=== PATIENT | male | born 1990 ===

== ENCOUNTER 2016-03-21 21:51 | Inpatient (IN) | payer MEDICAID ==
[~2016-03-21] VITALS: Ht 177.8 cm; Wt 55.8 kg
[2016-03-21 22:28] LABS: BASOPHILS 0.2 % (0.0-2.0); EOSINOPHILS 0 % (0-7); HEMOGLOBIN 14.6 g/dL (13.5-17.5); IMMATURE GRANULOCYTES 0.1 % (0-5); LYMPHOCYTES 11.6 % (15-50); MCH 30.2 pg (26.0-34.0); MCHC 33.2 g/dL (31.0-37.0); MCV 91.1 fL (80.0-100.0); MEAN PLATELET VOLUME 10.1 fL (7.4-10.4); MONOCYTES 22.6 % (2-11); NEUTROPHILS 65.5 % (40-80); PLATELET COUNT 128 10x3/uL (130-400); RBC 4.83 10x6/uL (4.20-6.10); RDW 12.4 % (11.5-14.5); WBC 10.1 10x3/uL (4.8-10.8)
[2016-03-21 23:23] LABS: ALBUMIN 4.1 g/dL (3.4-5.0); ALKALINE PHOSPHATASE 108 U/L (46-116); ALT (SGPT) 70 U/L (10-68); CALC OSMOLALITY 274 mosm/kg (275-300); CALCIUM 8.8 mg/dL (8.5-10.1); CARBON DIOXIDE 24.8 mmol/L (21.0-32.0); CHLORIDE - SERUM 98 mmol/L (98-107); CREATININE - SERUM 1.2 mg/dL (0.6-1.3); GLUCOSE 144 mg/dL (74-106); POTASSIUM - SERUM 3.1 mmol/L (3.5-5.1); PROTEIN - SERUM 8.4 g/dL (6.4-8.2); SODIUM 136 mmol/L (136-145); UREA NITROGEN 13 mg/dL (7-18); eGFR NON AFRICAN AMERICAN 78 mL/min (90-120)
[2016-03-21 23:31] LABS: AMYLASE - SERUM 22 U/L (25-115); LIPASE 77 U/L (73-393)
[2016-03-21 23:35] LABS: ACETAMINOPHEN 208.8 ug/mL (10.0-30.0)
[2016-03-22] VITALS (25 sets, daily range): BP systolic 110–131; BP diastolic 68–87; Ht 177.8 cm; Wt 55.8 kg
[2016-03-22 00:45] LABS: INR 1.27 (0.85-1.17); PROTIME 15.8 SECONDS (11.6-15.0)
--- NOTE | 2016-03-22 01:57 | NUR ---
PT RECIEVED. BP 121/78 HR 92 O2 SAT 98% PT STATES CURRENTLY HAVING SUICIDAL THOUGHTS, BUT HAS NO MEANS TO DO SO. PT SATES, "THE ONLY REASON EMS WAS CALLED WAS BECAUSE I DIDNT WANT A PAINFUL AND I WAS GETTING SICK AT HOME." PT STATES CURRENTLY ANXIETY LEVEL HIGH, PT SOMNOLENT. N/V EMESIS CLEAR. DOOR AND CURTAINS OPEN, LIGHT ON, BED IN LOWEST POSITION, CALL LIGHT IN REACH, PAPER SCRUBS ON. PT CLOSE TO NURSES STATION. WILL CONTINUE TO MONITOR.
--- NOTE | 2016-03-22 07:45 | NUR ---
ZOFRAN 4MG IVP FOR NAUSEA WITH EMESIS PER MAR ORDER
--- NOTE | 2016-03-22 08:04 | NUR ---
* Is the patient Alert and Oriented? Yes 0 * How many steps to enter\exit or inside your home? 8 0 * PCP DENIES HAVING A PCP 0 * Pharmacy [facility] 0 * Preadmission Environment Home with Family 0 * ADLs Independent 0 * Equipment None 0 * List name and contact numbers for known caregivers / representatives who currently or will assist patient after discharge: MOTHER: SHON PERALES [phone] 0 * Community resources currently utilized None 0 * Additional services required to return to the preadmission environment? Yes 0 * Can the patient safely return to the preadmission environment? No 0 * Has this patient been hospitalized within the prior 30 days at any hospital? No PATIENT IS ADMITTED FOR TYLENOL OVERDOSE. PATIENT IS AWAKE AND ALERT. HE STATES HE WAS INDEPENDENT IN ADL'S PRIOR TO ADMIT. PATIENT STATES HE LIVES WITH HIS MOTHER, SHON PERALES. PATIENT DENEIS HAVING A PCP. HE STATES THAT IF HE NEEDS MEDS HE GETS THEM FROM [facility] ON [facility]. PATIENT DENIES USE OF ANY EQUIPMENT AND DENIES EVER HAVING HOME HEALTH. THERE ARE 8 STEPS TO ENTER HIS HOME. PATIENT STATES HE HAS BEEN INPATIENT PSYCH AT [facility] AND HAS GONE TO [facility] IN THE PAST. HE STATES 12 YRS AGO HE WAS IN [facility] FOR DEPRESSION. AT DISCHARGE PATIENT WILL NEED INPATIENT PLACEMENT. HE IS AGREEABLE FOR INPATIENT PSYCH. HE DOES STATE THAT HE IS STILL WANTING TO . WHEN MEDICALLY STABLE CM WILL FIND PLACEMENT. CM TO FOLLOW.
--- NOTE | 2016-03-22 08:25 | NUR ---
DR ARTHUR HERE FOR EVAL, NO NEW ORDERS AT THIS TIME
--- NOTE | 2016-03-22 08:31 | NUR ---
OOB TO BEDSIDE COMMODE
--- NOTE | 2016-03-22 11:00 | NUR ---
SLEEPING WITH NO SIGNS OF DISTRESS, NO NAUSEA AT THIS TIME, ASSESSMENT COMPLETE, STATES HE STILLWANTS TO END IT ALL, VOICES NO NEEDS AT THIS TIME
[2016-03-22 14:08] LABS: UDS - AMPHET NEGATIVE QUAL (NEGATIVE); UDS - BARB NEGATIVE QUAL (NEGATIVE); UDS - BENZO NEGATIVE QUAL (NEGATIVE); UDS - COCAINE NEGATIVE QUAL (NEGATIVE); UDS - METH NEGATIVE QUAL (NEGATIVE); UDS - OPIATE NEGATIVE QUAL (NEGATIVE); UDS - PCP NEGATIVE QUAL (NEGATIVE); UDS - THC NEGATIVE QUAL (NEGATIVE)
--- NOTE | 2016-03-22 14:09 | NUR ---
DR SMITH AT BEDSIDE FOR EVAL, NEW ORDERS GIVEN, UA AND DRUG SCREEN EVAL TAKEN TO LAB
--- NOTE | 2016-03-22 14:27 | NUR ---
CHRONOMETER REPAIRER HERE FOR PT DRAW
[2016-03-22 14:35] LABS: APPEARANCE TURBID (CLEAR); COLOR YELLOW (YELLOW); LEUKOCYTE ESTERASE 2+ (NEGATIVE); NITRITE NEGATIVE (NEGATIVE); SPECIFIC GRAVITY 1.015 (1.005-1.020)
[2016-03-22 14:36] LABS: PROTEIN NEGATIVE (NEGATIVE)
[2016-03-22 14:37] LABS: GLUCOSE NEGATIVE (NEGATIVE)
[2016-03-22 14:38] LABS: BACTERIA MANY /hpf (NONE SEEN); BILIRUBIN NEGATIVE (NEGATIVE); EPITHELIAL CELLS 0-5 /hpf (0-5); KETONE MODERATE mg/dL (NEGATIVE); MUCUS <1+ /lpf (NONE SEEN); RED CELLS - URINE 0-5 /hpf (0-5)
[2016-03-22 14:39] LABS: CHOLESTEROL CRYSTALS RARE /hpf (NONE SEEN)
[2016-03-22 14:47] LABS: INR 1.18 (0.85-1.17); PROTIME 14.8 SECONDS (11.6-15.0)
--- NOTE | 2016-03-22 15:00 | NUR ---
RESTING WITH NO SIGNS OF DISTRESS, VSS, DENIES PAIN AND NAUSEA, CALL LIGHT IN REACH VOICES NO NEEDS AT THIS TIME
--- NOTE | 2016-03-22 17:19 | NUR ---
POTASSIUM 10 MEQ IV, INITIATED PER ORDER
--- NOTE | 2016-03-22 18:00 | NUR ---
MOTHER AT BEDSIDE, STATUS UPDATED, VOICES NO NEEDS AT THIS TIME
[2016-03-22 18:10] LABS: ALBUMIN 3.2 g/dL (3.4-5.0); ALKALINE PHOSPHATASE 75 U/L (46-116); ALT (SGPT) 70 U/L (10-68); BILIRUBIN - TOTAL 0.97 mg/dL (0.2-1.3); CALCIUM 8.4 mg/dL (8.5-10.1); CARBON DIOXIDE 21.8 mmol/L (21.0-32.0); CHLORIDE - SERUM 103 mmol/L (98-107); GLUCOSE 136 mg/dL (74-106); PROTEIN - SERUM 7.1 g/dL (6.4-8.2); SODIUM 138 mmol/L (136-145)
[2016-03-22 18:16] LABS: CALC OSMOLALITY 275 mosm/kg (275-300); CREATININE - SERUM 0.6 mg/dL (0.6-1.3); UREA NITROGEN 8 mg/dL (7-18); eGFR NON AFRICAN AMERICAN > 90 mL/min (90-120)
--- NOTE | 2016-03-22 18:45 | NUR ---
SECOND DOSE KCL 10 MEQ HELD, REPEAT CHEM PANEL POTASSIUM 4.0
--- NOTE | 2016-03-22 21:00 | NUR ---
2100: Pt resting flat in bed with eyes open. Pt LOCx3 alert and oriented. Pt denies pain, tingling, numbness, or nausea. Pt is able to move x4 extrem vs gravity without difficulty. Pt breathing RA [id number] with SPo2 98%. Lungs clear bilat with auscultation. MMP and no cyanosis noted. S1S2 regular SR on CM. PPPx4=bilat. ABD soft NT BS x4 active. Pt denies difficulty with elimination. 2109: Discussed with patient current plan of treatment including lab, possible transfers and locations, and services expected to recieve. Pt states he has been to [facility] before and verbalized understanding or plan. Discussed with patient current feelings. Pt states he is depressed. He expressed that he has no event specific to this event, but states he has a generalized feeling of depression. We discussed therapy and some previous experiences pt has had with therapy. Reassured patient and encouraged pt. Pt is polite and answers questions throughout discussion, but does not make eye contact and answers sometimes are brief.
[2016-03-22 22:08] LABS: INR 1.2 (0.85-1.17); PROTIME 15.1 SECONDS (11.6-15.0)
--- NOTE | 2016-03-22 22:30 | NUR ---
2230: Pt resting with eyes closed at this time. Pt able to get up OOB and use urinal without difficulty. Pts gait is steady. Emptied 500cc of clear yellow UOP.
[2016-03-23] VITALS (22 sets, daily range): BP systolic 104–119; BP diastolic 45–964
--- NOTE | 2016-03-23 | NUR ---
0000: Pt resting with eyes closed at this time. Easily arousable to verbal. Pt w/o c/o at this time.
--- NOTE | 2016-03-23 03:25 | NUR ---
0325: Reviewed lab with Poison control. Pt remains resting with eyes closed. Easily arousable to verbal. No c/o at this time. Pt remains SR 80-90 bpm. Remains room air with SPo2 98%.
--- NOTE | 2016-03-23 03:38 | NUR ---
0338: Pt requested "something" for sleep. Benadryl IV admin at this time.
--- NOTE | 2016-03-23 05:30 | NUR ---
0530: Pt resting with eyes closed. Open to verbal. Pt w/o c/o at this time.
[2016-03-23 05:52] LABS: BASOPHILS 0.2 % (0.0-2.0); EOSINOPHILS 0.3 % (0-7); HEMATOCRIT 39.2 % (42.0-54.0); IMMATURE GRANULOCYTES 0.2 % (0-5); LYMPHOCYTES 13.8 % (15-50); MCH 29.5 pg (26.0-34.0); MCHC 33.2 g/dL (31.0-37.0); MEAN PLATELET VOLUME 10.2 fL (7.4-10.4); MONOCYTES 16.2 % (2-11); NEUTROPHILS 69.3 % (40-80); PLATELET COUNT 113 10x3/uL (130-400); RBC 4.41 10x6/uL (4.20-6.10)
[2016-03-23 05:59] LABS: MCV 88.9 fL (80.0-100.0); WBC 6.2 10x3/uL (4.8-10.8)
[2016-03-23 06:06] LABS: INR 1.2 (0.85-1.17); PROTIME 15.1 SECONDS (11.6-15.0)
[2016-03-23 06:12] LABS: ALBUMIN 3.2 g/dL (3.4-5.0); ALKALINE PHOSPHATASE 75 U/L (46-116); ALT (SGPT) 72 U/L (10-68); BILIRUBIN - INDIRECT 0.37 mg/dL (0.00-1.00); BILIRUBIN - TOTAL 0.57 mg/dL (0.2-1.3); CALCIUM 8.2 mg/dL (8.5-10.1); CARBON DIOXIDE 26.3 mmol/L (21.0-32.0); CHLORIDE - SERUM 105 mmol/L (98-107); GLUCOSE 92 mg/dL (74-106); POTASSIUM - SERUM 3.4 mmol/L (3.5-5.1); SODIUM 139 mmol/L (136-145)
[2016-03-23 06:14] LABS: CALC OSMOLALITY 274 mosm/kg (275-300); CREATININE - SERUM 0.8 mg/dL (0.6-1.3); UREA NITROGEN 4 mg/dL (7-18); eGFR NON AFRICAN AMERICAN > 90 mL/min (90-120)
--- NOTE | 2016-03-23 09:56 | NUR ---
URINE SAMPLE OBTAINED AND DELIVERED TO LAB
[2016-03-23 10:04] LABS: APPEARANCE CLEAR (CLEAR); BACTERIA FEW /hpf (NONE SEEN); BILIRUBIN NEGATIVE (NEGATIVE); COLOR YELLOW (YELLOW); EPITHELIAL CELLS 0-5 /hpf (0-5); GLUCOSE NEGATIVE (NEGATIVE); KETONE SMALL mg/dL (NEGATIVE); LEUKOCYTE ESTERASE NEGATIVE (NEGATIVE); MUCUS <1+ /lpf (NONE SEEN); NITRITE NEGATIVE (NEGATIVE); PROTEIN NEGATIVE (NEGATIVE); WHITE CELLS - URINE 0-5 /hpf (0-5)
--- NOTE | 2016-03-23 19:00 | NUR ---
1900: Pt resting HOB 30 degrees with eyes closed. Open to verbal stimuli with no c/o at this time. Pt remains ST 120's on CM. Breathing RA [id number] with SPO2 98%. ABD soft NT BSx4. Pt denies difficulty with elimination.
[2016-03-24] VITALS (24 sets, daily range): BP systolic 85–121; BP diastolic 52–75
--- NOTE | 2016-03-24 | NUR ---
0000: Pt HR increased with activity. Pt HR increased to 160bpm sinus while up urinating. Pt without c/o SOB, Pain, Nausea at this time. Pt states he does not feel an increased HR. HR decreased back to 120's with decreased activity.
--- NOTE | 2016-03-24 04:00 | NUR ---
0400: Pt awake and alert at this time. Pt w/o c/o at this time. Pt temp 101.2 f. Pt states he does not feel hot. Pt is covered with blankets. Pt remains ST 120's on CM and increased with activity.
[2016-03-24 04:47] LABS: BASOPHILS 0.4 % (0.0-2.0); EOSINOPHILS 0.1 % (0-7); HEMATOCRIT 39.3 % (42.0-54.0); HEMOGLOBIN 13.2 g/dL (13.5-17.5); IMMATURE GRANULOCYTES 0.1 % (0-5); LYMPHOCYTES 20.9 % (15-50); MCH 29.9 pg (26.0-34.0); MCHC 33.6 g/dL (31.0-37.0); MCV 88.9 fL (80.0-100.0); MONOCYTES 22.4 % (2-11); NEUTROPHILS 56.1 % (40-80); PLATELET COUNT 122 10x3/uL (130-400); RBC 4.42 10x6/uL (4.20-6.10); WBC 6.7 10x3/uL (4.8-10.8)
[2016-03-24 05:12] LABS: ALBUMIN 3.3 g/dL (3.4-5.0); ALKALINE PHOSPHATASE 76 U/L (46-116); ALT (SGPT) 54 U/L (10-68); BILIRUBIN - DIRECT 0.13 mg/dL (0.00-0.30); BILIRUBIN - INDIRECT 0.37 mg/dL (0.00-1.00); CALC OSMOLALITY 272 mosm/kg (275-300); CALCIUM 8.2 mg/dL (8.5-10.1); CARBON DIOXIDE 24.8 mmol/L (21.0-32.0); CHLORIDE - SERUM 102 mmol/L (98-107); GLUCOSE 124 mg/dL (74-106); PROTEIN - SERUM 7.6 g/dL (6.4-8.2); SODIUM 138 mmol/L (136-145); UREA NITROGEN 2 mg/dL (7-18); eGFR NON AFRICAN AMERICAN > 90 mL/min (90-120)
--- NOTE | 2016-03-24 16:12 | NUR ---
TC to [facility] . Spoke with Janette. No available beds. TC to [facility]. Spoke with Pollo. Referred to school transportation director screener at [phone]. No available beds. TC to [facility]. Referred to intake nurse, Marta. Spoke with Marta. Clinical review preliminary given. She spoke with her Nurse Practitioner. [facility] does not have the capability to accept the patient at this time. Voiced concern regarding elevated temp and elevated pulse rate. CM advised primary nurse, Cristian and charge nurse, Andrea.
--- NOTE | 2016-03-24 19:20 | NUR ---
ASSESSMENT COMPLETE. S1S2. SINUS TACHYCARDIA SHOWING ON MONITOR. PT DENIES WANTING TO HURT SELF AT THIS PRESENT TIME. AAO. FOLLOWS COMMANDS. PERRLA. WEARING GLASSES. ROLL INSPECTOR STRENGTH EQUAL +5. RADIAL AND PEDAL PULSES PALPATED. RR CLEAR; EQUAL; NO LABORED. BOWEL SOUNDS ACTIVE X2.
--- NOTE | 2016-03-24 21:00 | NUR ---
PT RESTING; EYES OPENED. DENIES ANY FURTHER NEEDS AT THIS TIME. CALL LIGHT IN REACH. WILL CONTINUE TO MONITOR.
--- NOTE | 2016-03-24 23:15 | NUR ---
REASSESSMENT COMPLETE. NO CHANGES FROM PREVIOUS ASSESSMENT. CALL LIGHT IN REACH. WILL CONTINUE TO MONITOR.
--- NOTE | 2016-03-24 23:27 | NUR ---
SPOKE WITH POISON CONTROL. UPDATE ON PT CONDITION GIVEN.
[2016-03-25] VITALS (18 sets, daily range): BP systolic 101–120; BP diastolic 59–81
--- NOTE | 2016-03-25 01:06 | NUR ---
PT RESTING; EYES CLOSED. VSS. NO DISTRESS NOTED. CALL LIGHT IN REACH. WILL CONTINUE TO MONITOR.
--- NOTE | 2016-03-25 03:10 | NUR ---
REASSESSMENT COMPLETE. NO CHANGES FROM PREVIOUS ASSESSMENT. WILL CONTINUE TO MONITOR.
[2016-03-25 04:07] LABS: BASOPHILS 0.2 % (0.0-2.0); EOSINOPHILS 0.9 % (0-7); HEMATOCRIT 40.8 % (42.0-54.0); HEMOGLOBIN 13.6 g/dL (13.5-17.5); IMMATURE GRANULOCYTES 0.1 % (0-5); LYMPHOCYTES 19.5 % (15-50); MCH 29.9 pg (26.0-34.0); MCHC 33.3 g/dL (31.0-37.0); MCV 89.7 fL (80.0-100.0); MEAN PLATELET VOLUME 10.8 fL (7.4-10.4); MONOCYTES 17.8 % (2-11); NEUTROPHILS 61.5 % (40-80); RBC 4.55 10x6/uL (4.20-6.10); RDW 12.8 % (11.5-14.5); WBC 8.2 10x3/uL (4.8-10.8)
[2016-03-25 04:11] LABS: PLATELET COUNT 152 10x3/uL (130-400)
[2016-03-25 04:36] LABS: ALBUMIN 3.4 g/dL (3.4-5.0); ALKALINE PHOSPHATASE 80 U/L (46-116); ALT (SGPT) 51 U/L (10-68); BILIRUBIN - DIRECT 0.16 mg/dL (0.00-0.30); BILIRUBIN - INDIRECT 0.54 mg/dL (0.00-1.00); CALC OSMOLALITY 273 mosm/kg (275-300); CALCIUM 8.8 mg/dL (8.5-10.1); CHLORIDE - SERUM 101 mmol/L (98-107); CREATININE - SERUM 0.8 mg/dL (0.6-1.3); GLUCOSE 102 mg/dL (74-106); POTASSIUM - SERUM 3.2 mmol/L (3.5-5.1); PROTEIN - SERUM 8.2 g/dL (6.4-8.2); SODIUM 138 mmol/L (136-145); T4 THYROXIN - FREE 1.27 ng/dL (0.76-1.46); THYROID STIMULATING HORMONE 1.15 uIU/mL (0.36-3.74); eGFR NON AFRICAN AMERICAN > 90 mL/min (90-120)
[2016-03-25 04:46] LABS: UREA NITROGEN 6 mg/dL (7-18)
--- NOTE | 2016-03-25 05:15 | NUR ---
PT RESTING; EYES CLOSED. VSS. CALL LIGHT IN REACH. WILL CONTINUE TO MONITOR.
--- NOTE | 2016-03-25 07:15 | NUR ---
ASSESSMENT COMPLETE. DENIES PAIN. AAO X4. DENIES CURRENT SUICIDAL IDEATION. ADMITS RECENT SUICIDAL IDEATION. PATIENT HAS PLAN FOR IMPROVING HOME SITUATION AFTER D/C THAT HE THINKS WILL MAKE HIM LESS PRONE TO HAVE SUICIDAL IDEATION.
--- NOTE | 2016-03-25 09:00 | NUR ---
FAMILY AT BEDSIDE. UPDATE PROVIDED. DENIES NEEDS. ATENOLOL GIVEN FOR HR ABOVE 100. BP STABLE
--- NOTE | 2016-03-25 09:47 | NUR ---
NUTRITION MONITORING & EVAL NURSING REPORTS PT WITH 100% INTAKE REG DIET. WILL CONTINUE TO PROVIDE DIET, HONOR FOOD PREFERENCES. RD FOLLOWING
--- NOTE | 2016-03-25 11:20 | NUR ---
REASSESSMENT COMPLETE, SEE FLOWSHEET FOR DETAILS.
--- NOTE | 2016-03-25 13:03 | NUR ---
FAMILY AT BEDSIDE. UPDATE PROVIDED.
--- NOTE | 2016-03-25 14:57 | NUR ---
PRIMARY MD STATES PATIENT IS MEDICAL STABLE FOR TRANSFER TO INPATIENT PSYCH BED. TC TO [facility]. SPOKE W/ JAMES. NO AVAILABLE BEDS FOR PSYCH UNIT. TC TO [facility]. SPOKE WITH MARIO. NO AVAILABLE BEDS. TC TO [facility]. SPOKE WITH NHUNG. FAXED CLINICAL FOR REFERRAL. AWAIT RESPONSE. TC TO [facility]. SPOKE WITH RICARDO. FAXED CLINICAL FOR REVIEW. AWAIT RESPONSE.
--- NOTE | 2016-03-25 15:15 | NUR ---
REASSESSMENT COMPLETE, SEE FLOWSHEET FOR DETAILS.
--- NOTE | 2016-03-25 16:14 | NUR ---
SPOKE WITH DR. ARTHUR, WORKING ON DR. ADAMA KIM. ACCEPTING DOCTOR IS DR. BRASHER AT [facility] IN [place].
--- NOTE | 2016-03-25 17:00 | NUR ---
GAVE REPORT TO RADHA CLEANING RN AT [facility]
--- NOTE | 2016-03-25 17:11 | NUR ---
SPOKE WITH PATIENT'S MOTHER, UPDATED ON THE FACILITY HE IS GOING TO.
--- NOTE | 2016-03-25 19:44 | NUR ---
EMS ARRIVED. PT WILL BE TRANSFERED TO [facility] IN [place]. CALLED HOSPITAL TO NOTIFY OF DEPARTURE.
--- NOTE | 2016-03-26 01:03 | CN ---
PATIENT NAME:CY MURPHY MEDICAL RECORD: [id number] : 88 LOCATION:[id number] ADMIT DATE: 03/22/16 ACCOUNT: [id number] CONSULTING PHYSICIAN: JENN NEAL III, MD REFERRING PHYSICIAN: NASIM ARTHUR MD DATE OF CONSULTATION: 03/25/2016 FINDINGS: This is one of numerous psychiatric contacts in his lifetime for this 25-year-old unmarried white male. The patient was admitted following an overdose of acetaminophen. The patient stated on interview previously that this was a suicide attempt. The patient has a long past history of depression dating back to age 10. He has had previous suicide attempts and has been hospitalized before. He has been followed on an outpatient basis at [facility] locally in the past. The patient states that he has been essentially untreated for the last 2 years. He was in the [employer] [facility] program. This eventually ended. He has only recently received Medicaid approval. He has not seen a counselor or an MD regarding his depression in quite some time. The patient admits to low mood, lassitude, anhedonia, sleep and appetite disturbance, and feelings of hopelessness and worthlessness. The patient is very agreeable to receiving inpatient treatment and outpatient followup following that. MENTAL STATUS: On exam, mood is dysphoric. Eye contact is very poor. Affect is very constricted. Speech is low in volume and slow in production and rate. Content of thought is positive for expressions of hopelessness and nihilism. Sensorium is relatively clear. DIAGNOSTIC IMPRESSION: AXIS I: Major depressive disorder -- recurrent. RECOMMENDATIONS: Transfer for inpatient treatment as soon as medically stable. TRANSINT:[id number] Voice Confirmation ID: [id number] DOCUMENT ID: [id number] JENN NEAL III, MD at 0103 CC: [id number] DICTATION DATE: 03/25/16 1242 RESEARCH STATISTICIAN: 03/25/16 [id number] DIS IN 03/25/16 [address] [place] [address]
== END 2016-03-25 19:49 | disposition short-term general hospital (02) | DRG 918 ==
LOC: D.ER 21:51 → D.ICU 03-22 00:32
PROVIDERS: Family Medicine; Internal Medicine Gastroenterology; Physician Assistant; ADMIT Family Medicine
DX: T39.1X2A Poisoning by 4-Aminophenol derivatives, intentional self-harm, initial encounter (principal); F33.9 Major depressive disorder, recurrent, unspecified; N39.0 Urinary tract infection, site not specified